=== PATIENT | female | born 1960 | race Caucasian/White ===

== ENCOUNTER → 2016-11-19 | Outpatient (CLI) | payer OTHER ==
[~2016-11-19] MED LIST: FLUOCINONIDE; GLC500 PO; LEVOXYL PO; METO25TA56 PO; NXM/40 PO; PRX/40 PO; REPA1TAB42 PO; ZCR40 PO
[2016-11-19 13:22] LABS: ALT/SGPT 22 U/L (12-78); BLOOD UREA NITROGEN 10 mg/dl (7-18); BUN/CREATININE RATIO 15.3 (10-20); CALCIUM 9.5 mg/dl (8.5-10.1); CARBON DIOXIDE 26 mmol/L (21-32); CHLORIDE 106 mmol/L (98-107); CHOLESTEROL 193 mg/dl (0-200); CREATININE 0.66 mg/dl (0.60-1.20); GLUCOSE 133 mg/dl (70-99); SODIUM 142 mmol/L (136-145); TRIGLYCERIDES 272 mg/dl (0-150); VERY LOW DENSITY LIPOPROT CALC 54 mg/dl
[2016-11-19 13:30] LABS: ALB/GLOB RATIO 1.2 (0.9-2); ALKALINE PHOSPHATASE 91 U/L (45-117); AST/SGOT 10 U/L (15-37); CHOLESTEROL/HDL RATIO 3.3; HDL CHOLESTEROL 59 mg/dl; LDL CHOLESTEROL CALCULATED 80 mg/dl; THYROID STIMULATING HORMONE 0.909 uIu/ml (0.300-4.500)
[2016-11-19 13:36] LABS: ESTIMATED AVERAGE GLUCOSE 169 mg/dl; HA1C FLAG Normal (Normal)
== END | disposition home or self-care (01) ==
LOC: C.LAB 11:44
PROVIDERS: ATTEND Internal Medicine
DX: E11.65 Type 2 diabetes mellitus with hyperglycemia (principal); I10 Essential (primary) hypertension; E78.00 Pure hypercholesterolemia, unspecified; E03.9 Hypothyroidism, unspecified; E53.8 Deficiency of other specified B group vitamins

== ENCOUNTER → 2016-11-22 | Outpatient (CLI) | payer OTHER ==
--- NOTE | 2016-11-22 12:47 | MAMMOGRAPHY REPORT ---
BILATERAL DIGITAL SCREENING MAMMOGRAM TOMOSYNTHESIS WITH CAD: 11/22/2016 CLINICAL HISTORY: Routine screening. Patient has no complaints. TECHNIQUE: Bilateral breast tomosynthesis in addition to standard 2D mammography was performed. Curr ent study was also evaluated with a Computer Aided Detection (CAD) system. COMPARISON: Comparison is made to exams dated: 08/19/2015 mammogram, 11/13/2009 mammogram, and 08/23 mammogram - [facility]. BREAST COMPOSITION: There are scattered areas of fibroglandular density in both breasts. FINDINGS: There is architectural distortion in the lateral, middle one third of the left breast, be st seen on the CC view. This is thought to project superiorly on the MLO view. Given that it is no t well seen on the MLO view, additional spot compression tomosynthesis views in the MLO plane as wel l as targeted ultrasound are recommended for further evaluation. There are scattered benign-appearing calcifications bilaterally. No other suspicious mass, architec tural distortion or cluster of suspicious microcalcifications is seen. IMPRESSION: ACR BI-RADS CATEGORY 0: INCOMPLETE EVALUATION: NEED ADDITIONAL IMAGING EVALUATION The architectural distortion in the lateral left breast needs additional evaluation. The patient will be called to schedule an appointment. Approximately 10% of breast cancers are not detected with mammography. A negative mammographic repor t should not delay biopsy if a clinically suggestive mass is present. Lucila Cook M.D. ay/:11/22/2016 08:22:08 Mercerizer Machine Operator: Kayla Cain, M, [facility] letter sent: Addl Imaging 0 BI-RADS Code: ACR BI-RADS Category 0: Incomplete Evaluation: Need Additional Imaging Evaluation
== END | disposition home or self-care (01) ==
LOC: C.MAMM 07:14
PROVIDERS: ATTEND Obstetrics & Gynecology
DX: Z12.31 Encounter for screening mammogram for malignant neoplasm of breast (principal); N64.89 Other specified disorders of breast

== ENCOUNTER → 2016-11-30 | Outpatient (CLI) | payer OTHER ==
--- NOTE | 2016-11-30 15:55 | MAMMOGRAPHY REPORT ---
UNILATERAL LEFT DIGITAL DIAGNOSTIC MAMMOGRAM TOMOSYNTHESIS AND TARGETED LEFT ULTRASOUND: 11/30/2016 CLINICAL HISTORY: Callback from screening mammogram for possible left breast architectural distortio n. TECHNIQUE: Breast tomosynthesis in addition to standard 2D mammography was performed. Spot blue rosas left CC and MLO 2-D and tomosynthesis images were obtained. COMPARISON: Comparison is made to exams dated: 11/22/2016 mammogram, 08/19/2015 mammogram, 11/13/2009 mammogram, and 08/23/2005 mammogram - [facility]. BREAST COMPOSITION: There are scattered areas of fibroglandular density in the left breast. FINDINGS: The previously described area of possible architectural distortion seen within the left u pper outer quadrant has the appearance more of normal fibroglandular tissue on the additional views, although remains somewhat equivocal on the additional views. The appearance of this region appears stable compared to prior exams including the cc view from the 2009 exam. Targeted ultrasound was performed of the left upper outer quadrant, which shows no suspicious masses or other suspicious sonographic abnormalities. IMPRESSION: ACR BI-RADS CATEGORY 0: INCOMPLETE EVALUATION: NEED ADDITIONAL IMAGING EVALUATION, TAR GETED ULTRASOUND ACR BI-RADS CATEGORY 0: INCOMPLETE EVALUATION: NEED ADDITIONAL IMAGING EVALUATION Equivocal architectural distortion in the left upper outer quadrant on the additional views, without corresponding sonographic abnormality evident. The finding likely represents the patient's normal fibroglandular tissue pattern, especially given the similarity to prior exams including the 2010 exa m. However, given the equivocal nature, bilateral breast MRI is recommended to exclude abnormal pat hology in this region; the option of short interval follow-up tomosynthesis mammograms were also dis cussed. The patient would like to weigh her options before making a decision on follow-up. The patient has been verbally notified of the results. Approximately 10% of breast cancers are not detected with mammography. A negative mammographic repor t should not delay biopsy if a clinically suggestive mass is present. Lorena Connor M.D. /:11/30/2016 15:06:15 Watch Repairer: Karyna Miller, [facility] letter sent: Addl Imaging 0 BI-RADS Code: ACR BI-RADS Category 0: Incomplete Evaluation: Need Additional Imaging Evaluation Ul trasound BI-RADS: ACR BI-RADS Category 0: Incomplete Evaluation: Need Additional Imaging Evaluation
== END | disposition home or self-care (01) ==
LOC: C.MAMM 08:47
PROVIDERS: ATTEND Obstetrics & Gynecology
DX: N64.9 Disorder of breast, unspecified (principal)

== ENCOUNTER → 2016-12-15 | Outpatient (CLI) | payer OTHER ==
[~2016-12-15] MED LIST changes: +GADAVIST IV PRN; +REPA1TAB40 PO; -REPA1TAB42 PO
--- NOTE | 2016-12-19 15:16 | MAMMOGRAPHY REPORT ---
BREAST MRI OF BOTH BREASTS : 12/15/2016 CLINICAL HISTORY: Equivocal architectural distortion in the left upper outer quadrant on recent mamm ograms, without sonographic correlate evident. COMPARISON: Comparison is made to exams dated: 11/30/2016 ultrasound, 11/22/2016 mammogram, 5 mammogram, and 11/13/2009 mammogram - [facility]. Technique: The patient was placed prone in a dedicated breast imaging coil. Precontrast axial T1-we ighted, axial T2-weighted fat saturation, and axial T1-weighted fat saturation images were obtained. After the administration of 9.5 mL of Gadavist IV contrast, sequential T1-weighted fat saturation images were obtained. Subtraction images were obtained of the dynamic contrast enhanced sequences, and 3-D reformations were performed. The [employer] software was used for kinetic analysis. Findings: There is mild background parenchymal enhancement bilaterally. There are multiple small foci of enha ncement seen scattered throughout both breasts, which are felt to represent normal background parenc hymal enhancement. One 5 mm focus of enhancement is seen within the left 3:00 breast middle depth, which appears slightly more prominent compared to the other bilateral foci (series [id number] image 77). This demonstrates a benign type persistent kinetic pattern and is probably benign and likely also r epresents background parenchymal enhancement. There are no suspicious masses or other suspicious ab normalities seen within either breast. There is no abnormal enhancement seen in the region of the q uestionable architectural distortion within the left upper outer quadrant on the recent mammograms. Given the lack of corresponding MRI abnormality, the mammographic finding is considered benign and compatible with normal fibroglandular tissue. There is no evidence of axillary adenopathy. The chest wall structures are negative. Visualized ex tramammary soft tissues are grossly unremarkable. IMPRESSION: ACR-BI-RADS CATEGORY 3: PROBABLY BENIGN 1. No suspicious MRI abnormality seen within the left upper outer quadrant at the site of the quest ionable mammographic architectural distortion. Given the lack of corresponding MRI abnormality, the mammographic finding is benign and felt to represent normal fibroglandular tissue. The patient can return to routine annual mammography. 2. Incidental 5 mm focus of enhancement in the left 3:00 breast, which appears more prominent nelli red to the other scattered bilateral foci. The focus is probably benign and likely represents aury l background parenchymal enhancement. Recommend follow-up bilateral breast MRI in 6 months to reeva luate, given no priors to document stability. The patient was verbally notified of the results by myself, Dr. Connor, on 12/16/2016. Lorena Connor M.D. ah/:12/16/2016 15:44:07 Revenue Accounting Manager: store administrator, [facility] letter sent: Follow Up Recommended 3 BI-RADS Code: ACR-BI-RADS Category 3: Probably Benign
== END | disposition home or self-care (01) ==
LOC: C.MRI 06:44
PROVIDERS: ATTEND Obstetrics & Gynecology
DX: R92.8 Other abnormal and inconclusive findings on diagnostic imaging of breast (principal)

== ENCOUNTER → 2017-05-18 | Outpatient (CLI) | payer OTHER ==
[~2017-05-18] MED LIST changes: -GADAVIST IV PRN; -REPA1TAB40 PO; +REPA1TAB42 PO
[2017-05-18 09:49] LABS: BLOOD UREA NITROGEN 11 mg/dl (7-18); BUN/CREATININE RATIO 14.7 (10-20); CALCIUM 9.4 mg/dl (8.5-10.1); CARBON DIOXIDE 27 mmol/L (21-32); CHLORIDE 106 mmol/L (98-107); CHOLESTEROL 171 mg/dl (0-200); CREATININE 0.74 mg/dl (0.60-1.20); GLUCOSE 158 mg/dl (70-99); POTASSIUM 3.9 mmol/L (3.5-5.1); SODIUM 140 mmol/L (136-145)
[2017-05-18 09:53] LABS: CHOLESTEROL/HDL RATIO 3.4; HDL CHOLESTEROL 50 mg/dl; TRIGLYCERIDES 417 mg/dl (0-150)
[2017-05-18 10:01] LABS: ESTIMATED AVERAGE GLUCOSE 171 mg/dl; HA1C FLAG Normal (Normal)
== END | disposition home or self-care (01) ==
LOC: C.LAB1850 07:05
PROVIDERS: ATTEND Internal Medicine
DX: E11.65 Type 2 diabetes mellitus with hyperglycemia (principal); E78.00 Pure hypercholesterolemia, unspecified

== ENCOUNTER → 2017-07-31 | Outpatient (CLI) | payer OTHER ==
[~2017-07-31] MED LIST changes: +REPA1TAB40 PO; -REPA1TAB42 PO
[2017-07-31 12:41] LABS: BASO % 0.8 %; BASO ABS # 0.07 K/uL (0-0.2); COMPLETE YES; EOS % 2.2 %; HEMATOCRIT 37.8 % (37-47); IG% 0.2 %; LYMPH % 26.7 %; LYMPH ABS # 2.27 K/uL (1.2-3.4); MEAN CELL VOLUME 88.5 fL (80-100); MEAN CORPUSCULAR HEMOGLOBIN 29.3 pg (25-34); MEAN CORPUSCULAR HGB CONC 33.1 g/dl (32-36); MEAN PLATELET VOLUME 10.1 fL (7.4-10.4); MONO % 5.5 %; NEUT % 64.6 %; PLATELET COUNT 219 K/uL (130-400); RED BLOOD COUNT 4.27 M/uL (4.2-5.4); WHITE BLOOD COUNT 8.49 K/uL (4.8-10.8)
[2017-07-31 13:26] LABS: BLOOD UREA NITROGEN 12 mg/dl (7-18); BUN/CREATININE RATIO 14.4 (10-20); CALCIUM 8.9 mg/dl (8.5-10.1); CARBON DIOXIDE 25 mmol/L (21-32); CHLORIDE 104 mmol/L (98-107); CREATININE 0.84 mg/dl (0.60-1.20); GLUCOSE 221 mg/dl (70-99); POTASSIUM 3.9 mmol/L (3.5-5.1); SODIUM 137 mmol/L (136-145)
[2017-07-31 13:37] LABS: TOTAL IRON BINDING CAPACITY 294 mcg/dl (250-450)
[2017-07-31 14:40] LABS: ESTIMATED AVERAGE GLUCOSE 177 mg/dl; HA1C FLAG Normal (Normal)
== END | disposition home or self-care (01) ==
LOC: C.LAB1850 11:45
PROVIDERS: ATTEND Internal Medicine
DX: E03.9 Hypothyroidism, unspecified (principal); E11.65 Type 2 diabetes mellitus with hyperglycemia; E55.9 Vitamin D deficiency, unspecified; R53.81 Other malaise

== ENCOUNTER → 2017-08-11 | Outpatient (CLI) | payer OTHER ==
--- NOTE | 2017-08-14 07:49 | MAMMOGRAPHY REPORT ---
BREAST MRI OF BOTH BREASTS : 08/11/2017 CLINICAL HISTORY: Incidental enhancing region in the left 3:00 breast seen on prior breast MRI, for [facility] follow-up MRI was recommended. COMPARISON: Comparison is made to exams dated: 11/30/2016 mammogram, 11/30/2016 ultrasound, 11/22/2016 mammogram, 08/19/2015 mammogram, 11/13/2009 mammogram, and 12/15/2016 breast MRI - [facility]. Technique: The patient was placed prone in a dedicated breast imaging coil. Precontrast axial T1-zackery ghted, axial T2-weighted fat saturation, and axial T1-weighted fat saturation images were obtained. After the administration of 10 mL of Gadavist IV contrast, sequential T1-weighted fat saturation imag es were obtained. Subtraction images were obtained of the dynamic contrast enhanced sequences, and 3 -D reformations were performed. The [employer] software was used for kinetic analysis. Findings: There is mild background parenchymal enhancement involving bilateral breasts. There has been no sign ificant change compared to the prior breast MRI. The focal 6 mm area of non-mass enhancement within the left breast at approximately 3:30 to 4:00 middle depth is stable compared to the December 2016 [facility] MRI (series [id number] image 88). This demonstrates a benign type persistent kinetic pattern and is con sidered benign given the morphology and stability. There is also a small 3 mm enhancing focus in the right 6:00 breast middle depth, which also demonstrates a benign type persistent kinetic pattern and is stable compared to the December 2016 exam; the finding is considered benign given the morphology and stability (series [id number] image 106). There are no suspicious enhancing masses or areas of abnormal n on-mass enhancement within either breast. There is no evidence of axillary adenopathy. The chest wall structures are negative. Visualized ext ramammary soft tissues are grossly unremarkable. IMPRESSION: ACR BI-RADS CATEGORY 2: BENIGN No MRI evidence of malignancy in either breast. Focal 6 mm area of enhancement in the left 3:30 to 4 :00 breast is stable compared to the December 2016 exam, and is considered benign given the morphology a nd stability. Return to annual mammogram screening schedule is recommended, due November 2017. Lorena Connor M.D. /:08/11/2017 16:34:00 Radiology Aide: lawn technician, [facility] letter sent: Normal 09/05 BI-RADS Code: ACR BI-RADS Category 2: Benign
== END | disposition home or self-care (01) ==
LOC: C.MRI 14:21
PROVIDERS: ATTEND Obstetrics & Gynecology
DX: R92.8 Other abnormal and inconclusive findings on diagnostic imaging of breast (principal)

== ENCOUNTER → 2017-09-01 | Outpatient (CLI) | payer OTHER ==
[~2017-09-01] MED LIST changes: +CITA10TA4 PO; +LEVO150T9 PO; +LEVO175T3 PO; +METF-384 PO; +MULT-506 PO; +PHEN37.585 PO; +[UNRECOGNIZED DRUG - OTHER] PO
== END | disposition home or self-care (01) ==
LOC: C.PAPS 09:38
PROVIDERS: ATTEND Physician Assistant
DX: Z12.4 Encounter for screening for malignant neoplasm of cervix (principal)